=== PATIENT | female | born 1940 | race Caucasian/White ===

== ENCOUNTER → 2018-04-29 | Day surgery (SDC) | payer MEDICARE, BC ==
[~2018-04-29] MED LIST: Lactated Ringers 1,000 ML IV SCH; Propofol 200 MG/20 ML SDV IV ONE
[2018-04-29 11:17] VITALS: BP 150/64
--- NOTE | 2018-04-29 12:38 | OR ---
DATE OF OPERATION: 04/29/2018 PREOPERATIVE DIAGNOSIS: FOLLOW UP POLYPS. POSTOPERATIVE DIAGNOSIS: FOLLOW UP POLYPS. SURGEON: Ramírez Blood MD PROCEDURE: FULL-LENGTH COLONOSCOPY WITH POLYP REMOVAL X2. 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 COMPLICATIONS: None. SPECIMEN: Tubular adenomas x2. FINDINGS: 1. Full-length colonoscopy. 2. Tubular adenomas x2. 3. Moderate sigmoid diverticulosis. RECOMMENDATIONS: Followup colonoscopy in 5 years. INDICATIONS: The patient has a prior history of polyp removals with colonoscopy. She is due for a 5-year followup. DESCRIPTION OF PROCEDURE: The patient was prepped and draped, placed in the left lateral decubitus position. A lubricated Olympus colonoscope was inserted and easily advanced to the cecum. We were able to directly visualize the ileocecal valve and appendiceal orifice. The bowel prep was adequate. Upon withdrawal, right outside the cecal pouch, the patient had a small flat sessile polyp removed in its entirety with cold forceps biopsy x2. The rest of the ascending and transverse colons appeared completely benign. The patient has fairly moderate diverticular disease throughout most of left colon even into the descending area, without any active inflammation. A second small polyp looking like a hamartoma was found in the mid to distal sigmoid colon, removed in its entirety with forceps. It was small measuring well less than 0.5 cm. No other signs of lesions, vascular abnormality, or bleeding sites were seen. The rectal vault was unremarkable. Retroflexion of scope in the rectum showed no anal lesions. Air was suctioned. Scope removed without complication. AMISHA/RANULFO /[id number]
== END ==
LOC: CC.SDS 08:33
PROVIDERS: ATTEND Family Medicine
DX: Z12.11 Encounter for screening for malignant neoplasm of colon (principal); K63.5 Polyp of colon; K57.30 Diverticulosis of large intestine without perforation or abscess without bleeding; M47.812 Spondylosis without myelopathy or radiculopathy, cervical region; E78.5 Hyperlipidemia, unspecified; I10 Essential (primary) hypertension; J30.2 Other seasonal allergic rhinitis; Z79.82 Long term (current) use of aspirin; Z79.899 Other long term (current) drug therapy; Z88.5 Allergy status to narcotic agent; Z88.8 Allergy status to other drugs, medicaments and biological substances
CPT/HCPCS: 88305; J2704; J7120

== ENCOUNTER 2022-02-16 16:05 | Emergency (ER) | payer MEDICARE, BC ==
[2022-02-16 16:27] LABS: PTT,PARTIAL THROMBOPLSTIN TIME 24.3 SEC (23.2-32.3)
[2022-02-16] MEDS ORDERED: Heparin Sodium/0.45% NaCl 500 ML IV SCH (16:45)
[2022-02-16] MEDS: Heparin Sodium 5,000 Units/ML Vial IVPUSH ONE (17:13)
[2022-02-16] MEDS: Heparin Sodium/0.45% NaCl 500 ML IV SCH (17:13)
[2022-02-16] MEDS: Iopamidol 755 Mg/ML 100 ML Bottle IVPUSH ONE (17:21)
[2022-02-16 17:38] VITALS: BP 143/89; PULSE 99
== END 2022-02-16 18:15 ==
LOC: CC.ED 16:05
DX: I26.99 Other pulmonary embolism without acute cor pulmonale (principal); R77.8 Other specified abnormalities of plasma proteins; R79.89 Other specified abnormal findings of blood chemistry; R09.02 Hypoxemia; I10 Essential (primary) hypertension; Z88.5 Allergy status to narcotic agent; Z88.8 Allergy status to other drugs, medicaments and biological substances; Z79.82 Long term (current) use of aspirin; Z20.822 Contact with and (suspected) exposure to COVID-19
CPT/HCPCS: 36415; 71275; 85610; 85730; 93010; 96365; 99285; 99285-25; J1644; Q9967; U0002

== ENCOUNTER 2022-04-18 17:30 | Emergency (ER) | payer MEDICARE, BC ==
[2022-04-18 17:33] VITALS: BP 167/72; PULSE 118
== END 2022-04-18 19:00 | disposition home or self-care (01) ==
LOC: CC.ED 17:30
DX: R00.2 Palpitations (principal); R73.9 Hyperglycemia, unspecified; I10 Essential (primary) hypertension; Z88.5 Allergy status to narcotic agent; Z88.8 Allergy status to other drugs, medicaments and biological substances; Z79.01 Long term (current) use of anticoagulants
CPT/HCPCS: 36415; 80053; 81001; 83735; 84484; 85025; 86140; 93005; 99284; 99285

== ENCOUNTER → 2023-04-30 | Day surgery (SDC) | payer MEDICARE, BC ==
[~2023-04-30] MED LIST changes: -Propofol 200 MG/20 ML SDV IV ONE; +Propofol 200 MG/20 ML SDV ONE; +fentaNYL 50 MCG/ML SDV ONE
[2023-04-30 09:26] VITALS: BP 138/69; PULSE 69
== END ==
LOC: CC.SDS 07:16
PROVIDERS: ATTEND Family Medicine
DX: Z12.11 Encounter for screening for malignant neoplasm of colon (principal); K57.30 Diverticulosis of large intestine without perforation or abscess without bleeding; F41.9 Anxiety disorder, unspecified; E78.5 Hyperlipidemia, unspecified; I10 Essential (primary) hypertension; M17.9 Osteoarthritis of knee, unspecified; I26.99 Other pulmonary embolism without acute cor pulmonale; Z86.010 Personal history of colon polyps; Z88.5 Allergy status to narcotic agent; Z88.8 Allergy status to other drugs, medicaments and biological substances; Z79.01 Long term (current) use of anticoagulants; Z79.899 Other long term (current) drug therapy
CPT/HCPCS: 00811; 36569; J2704; J3010; J7120